=== PATIENT | male | born 1950 | race Caucasian/White ===

== ENCOUNTER 2016-12-05 02:08 | Inpatient (IN) | payer OTHER ==
[~2016-12-05] VITALS: Ht 182.9 cm; Wt 103.4 kg
[2016-12-05] VITALS (7 sets, daily range): BP systolic 151–236; BP diastolic 66–105
[2016-12-05 04:11] LABS: BASOPHIL COUNT 0.1 K/uL (0-0.1); EOSINOPHIL (%) 7.3 % (0-5); EOSINOPHIL COUNT 0.6 K/uL (0-0.3); HEMATOCRIT 35.6 % (38.0-50.0); IMMATURE GRANULOCYTE (%) 0.1 % (0.0-0.7); IMMATURE GRANULOCYTE COUNT 0.1 K/uL; LYMPHOCYTE COUNT 1.7 K/uL (1.0-2.8); MCH 28.4 PG (29.0-34.0); MCHC 34.3 G/DL (30.0-36.0); MCV 82.8 FL (86-99); MEAN PLAT.VOLUME 10.3 uM^3 (9.0-12.4); MONOCYTE (%) 7.3 % (3-12); MONOCYTE COUNT 0.6 K/uL (0-0.8); NEUTROPHIL COUNT 5.3 K/uL (1.8-6.4); PLATELET COUNT 235 K/uL (156-360); RBC DIS.WIDTH-CV 13.7 % (11.8-14.6); RBC DIS.WIDTH-SD 40.4 % (39-53); WHITE BLOOD COUNT 8.3 K/uL (4.1-10.2)
[2016-12-05 04:27] LABS: CHLORIDE 107 mEq/L (99-109); SODIUM 140 mEq/L (136-147)
[2016-12-05 04:28] LABS: GLUCOSE 82 mg/dL (70-99)
[2016-12-05 04:30] LABS: ANION GAP 9 MEQ/L (2-14)
[2016-12-05 04:32] LABS: GFR ESTIMATE (CALCULATED) 43 mL/min/
[2016-12-05 04:33] LABS: UREA NITROGEN (BUN) 32 mg/dL (9-23)
[2016-12-05 05:03] LABS: TROP-I INTERPRETATION NEGATIVE; TROPONIN-I 0.03 ng/mL (0.0-0.30)
[2016-12-05] MEDS ORDERED: METOPROLOL TAR100 MG PO (05:40)
[2016-12-05] MEDS ORDERED: HYDROCHLOROTHIA25 MG PO (05:41)
[2016-12-05] MEDS ORDERED: LOSARTAN POTAS100 MG PO (05:41)
[2016-12-05] MEDS ORDERED: METFORMIN HCL1000 MG PO (05:42)
[2016-12-05] MEDS ORDERED: CLONIDINE HCL0.2 MG PO (05:42)
[2016-12-05] MEDS ORDERED: NOVOLOG MI100 UNIT/M SC (05:43)
[2016-12-05] MEDS ORDERED: GLIPIZIDE10 MG PO (05:44)
[2016-12-05] MEDS ORDERED: GLUCOTROL XL10 MG PO (07:52)
[2016-12-05] MEDS ORDERED: DAILY VALUE1 EACH PO (07:53)
[2016-12-05 09:45] LABS: HDL CHOLESTEROL 26 MG/DL (Desirable>=40); LDL CHOLESTEROL 134 mg/dL (Desirable<100); NON-HDL CHOLESTEROL 159 mg/dL (Desirable<160); TOTAL CHOLESTEROL 185 mg/dL (Desirable<200); TRIGLYCERIDES 123 MG/DL (Normal: <150)
[2016-12-05 12:34] LABS: TROP-I INTERPRETATION NEGATIVE; TROPONIN-I 0.01 ng/mL (0.0-0.30)
[2016-12-05 16:13] LABS: TROP-I INTERPRETATION NEGATIVE; TROPONIN-I < 0.01 ng/mL (0.0-0.30)
[2016-12-06] VITALS (7 sets, daily range): BP systolic 115–184; BP diastolic 56–85
[2016-12-06 06:26] LABS: ANION GAP 7 MEQ/L (2-14); CHLORIDE 105 MEQ/L (99-109); GFR ESTIMATE (CALCULATED) 43 mL/min/; GLUCOSE 91 mg/dL (70-99); MAGNESIUM 1.9 mg/dl (1.3-2.7); POTASSIUM 3.9 MEQ/L (3.7-5.4); SAMPLE HEMOLYSIS CHECK 0; SAMPLE ICTERIC CHECK 0; SAMPLE LIPEMIA CHECK 0; SODIUM 138 MEQ/L (136-147); UREA NITROGEN (BUN) 36 mg/dL (9-23)
[2016-12-06 13:04] LABS: POINT-OF-CARE METER ID UU13113831
[2016-12-07 03:52] VITALS: BP 120/59
[2016-12-07 07:40] VITALS: BP 163/73
[2016-12-07 09:54] LABS: ANION GAP 6 MEQ/L (2-14); CHLORIDE 103 MEQ/L (99-109); POTASSIUM 4.2 MEQ/L (3.7-5.4); SAMPLE HEMOLYSIS CHECK 0; SAMPLE ICTERIC CHECK 0; SAMPLE LIPEMIA CHECK 0; SODIUM 137 MEQ/L (136-147)
[2016-12-07 10:04] LABS: GFR ESTIMATE (CALCULATED) 36 mL/min/; UREA NITROGEN (BUN) 42 mg/dL (9-23)
[2016-12-07 10:09] LABS: GLUCOSE 268 mg/dL (70-99)
[2016-12-07 11:15] VITALS: BP 167/72
[2016-12-07] MEDS ORDERED: PRAVASTATIN SOD80 MG PO (11:57)
[2016-12-07] MEDS ORDERED: ASPIR-LOW81 MG PO (11:58)
[2016-12-07] MEDS ORDERED: NIFEDIPINE ER30 MG PO (11:58)
[2016-12-07] MEDS ORDERED: CLONIDINE HCL0.1 MG PO (11:58)
[2016-12-07] MEDS ORDERED: LABETALOL HCL200 MG PO (11:58)
[2016-12-07 12:00] VITALS: BP 136/65
[2016-12-08 15:37] LABS: Metanephrine,Plasma 52 pg/mL (<=57)
== END 2016-12-07 14:10 | disposition home or self-care (01) | DRG 292 ==
LOC: EME 02:08 → EDOF 07:32 → 5WEST 08:24 → 2EASTP 12-06 10:17 → 5WEST 12-06 10:17 → 2EASTP 12-06 17:07
PROVIDERS: Emergency Medicine; Hospitalist; Internal Medicine; Internal Medicine Nephrology
DX: I13.0 Hypertensive heart and chronic kidney disease with heart failure and stage 1 through stage 4 chronic kidney disease, or unspecified chronic kidney disease (principal); I16.1 Hypertensive emergency; N17.9 Acute kidney failure, unspecified; E11.22 Type 2 diabetes mellitus with diabetic chronic kidney disease; N18.3 Chronic kidney disease, stage 3 (moderate); Q61.2 Polycystic kidney, adult type; I70.1 Atherosclerosis of renal artery; Z79.4 Long term (current) use of insulin; Z79.84 Long term (current) use of oral hypoglycemic drugs; I73.9 Peripheral vascular disease, unspecified; E78.5 Hyperlipidemia, unspecified; R94.31 Abnormal electrocardiogram [ECG] [EKG]; Z87.891 Personal history of nicotine dependence; Z95.828 Presence of other vascular implants and grafts; Z86.73 Personal history of transient ischemic attack (TIA), and cerebral infarction without residual deficits; I50.9 Heart failure, unspecified
CPT/HCPCS: 70140; 70450; 74185; 76770; 80048; 80061; 82088 90; 82948; 83735; 83835 90; 84100; 84244 90; 84484; 85025; 93005; 93306; 93975; 99281; 99284; G0378; J0360; J1644; J1815; J7040

== ENCOUNTER 2017-07-03 04:02 | Emergency (ER) | payer OTHER ==
[~2017-07-03] VITALS: Ht 182.9 cm; Wt 102.9 kg
[~2017-07-03 04:02] MED LIST: ASPIR-LOW81 MG PO; CLONIDINE HCL0.1 MG PO; CLONIDINE HCL0.2 MG PO; DAILY VALUE1 EACH PO; GLIPIZIDE10 MG PO; GLUCOTROL XL10 MG PO; HYDROCHLOROTHIA25 MG PO; LABETALOL HCL200 MG PO; LOSARTAN POTAS100 MG PO; METFORMIN HCL1000 MG PO; METOPROLOL TAR100 MG PO; NIFEDIPINE ER30 MG PO; NOVOLOG MI100 UNIT/M SC; PRAVASTATIN SOD80 MG PO
[2017-07-03] MEDS ORDERED: CATAPRES0.1 MG PO (05:58)
[2017-07-03] MEDS ORDERED: HYDROCHLOROTHIA25 MG PO (05:59)
[2017-07-03] MEDS ORDERED: ADALAT CC 30 MG30 MG PO (06:01)
[2017-07-03] MEDS ORDERED: CILOSTAZOL50 MG PO (06:02)
[2017-07-03 07:08] VITALS: BP 187/81
== END 2017-07-03 07:09 | disposition home or self-care (01) ==
LOC: EME 04:02
DX: I10 Essential (primary) hypertension (principal); E11.9 Type 2 diabetes mellitus without complications; Z87.442 Personal history of urinary calculi; Z79.4 Long term (current) use of insulin; Z87.891 Personal history of nicotine dependence; Z79.84 Long term (current) use of oral hypoglycemic drugs
CPT/HCPCS: 99281; 99284